=== PATIENT | female | born 1945 | race Two or more races ===

== ENCOUNTER 2023-05-20 08:15 | Emergency (ER) | payer OTHER ==
[~2023-05-20] VITALS: Ht 157.5 cm; Wt 61.2 kg
[2023-05-20] MEDS ORDERED: ONDANSETRON HCL 2 MG/ML VIAL IM ONE (09:00)
[2023-05-20 09:19] LABS: HEMATOCRIT 37.6 % (36.0-45.00); HEMOGLOBIN 12.9 g/dL (12.0-15.00); MEAN CELL VOLUME 87.1 fL (80.00-100.00); MEAN CORPUSCULAR HEMOGLOBIN 29.9 pg (27.00-32.0); MEAN CORPUSCULAR HGB CONC 34.4 g/dl (32.0-36.0); PLATELET COUNT 264 K/uL (150-450); RED BLOOD COUNT 4.31 M/uL (4.00-6.00); RED CELL DISTRIBUTION WIDTH 14.6 % (11.5-14.5)
[2023-05-20 09:55] LABS: ALBUMIN 3.6 gm/dL (3.4-5.0); BILIRUBIN TOTAL 0.38 mg/dL (0.3-1.2); CREATININE SERUM 0.92 mg/dL (0.55-1.02); GFR 59.19; GLOBULINA 4.6 G/DL (2.4-3.5); POTASSIUM 3.94 mEq/L (3.5-5.1); TOTAL PROTEIN 8.2 gm/dL (6.4-8.2)
[2023-05-20 10:15] LABS: URINE EPITHELIAL CELLS 8.3 uL (0.0-38.8); URINE WBC 1307.8 uL (0.0-23.2)
[2023-05-20 10:27] LABS: PH,URINE 5.5 (5.0-8.0); URINE APPEARANCE Cloudy; URINE BILIRRUBIN Small (NEGATIVE); URINE BLOOD Large; URINE COLOR Dark Yellow; URINE GLUCOSE Negative (NEGATIVE); URINE LEUKOCYTE Moderate; URINE NITRATE Negative
[2023-05-20 10:28] LABS: URINE PROTEIN 100 (NEGATIVE)
[2023-05-20] MEDS ORDERED: CEFTRIAXONE SODIUM 2,000 MG VIAL IM ONE (10:45)
[2023-05-20 11:12] LABS: URINE MUCUS MODERATE
== END 2023-05-20 10:55 | disposition home or self-care (01) ==
LOC: ER 08:15
PROVIDERS: General Practice
DX: R53.81 Other malaise (principal); N39.0 Urinary tract infection, site not specified; E03.8 Other specified hypothyroidism; E11.9 Type 2 diabetes mellitus without complications
CPT/HCPCS: 36415; 96372; 99282; J0696; J2405

== ENCOUNTER 2023-10-14 06:15 | Day surgery (SDC) | payer OTHER ==
[2023-10-14] MEDS ORDERED: fentaNYL CITRATE 50 MCG/ML AMPUL IV PUSH ONE (09:15)
[2023-10-14] MEDS ORDERED: DIPHENHYDRAMINE HCL 50 MG/ML VIAL 1ML IV ONE (09:15)
[2023-10-14] MEDS ORDERED: MIDAZOLAM HCL 2 MG/2 ML VIAL IV ONE (09:15)
== END 2023-10-14 11:00 | disposition home or self-care (01) ==
LOC: AMB-ENDOS 06:15
PROVIDERS: ATTEND Colon & Rectal Surgery
DX: K63.5 Polyp of colon (principal); K57.30 Diverticulosis of large intestine without perforation or abscess without bleeding